=== PATIENT | female | born 1975 | race Caucasian/White ===

== ENCOUNTER 2024-05-05 09:55 | Outpatient (CLI) | payer OTHER ==
[~2024-05-05 09:55] MED LIST: SYNTHROID125 MCG
== END 2024-05-05 10:46 | disposition home or self-care (01) ==
LOC: TOM 09:55
PROVIDERS: ATTEND Urology
DX: T81.83XA Persistent postprocedural fistula, initial encounter (principal)

== ENCOUNTER 2024-12-04 12:16 | Emergency (ER) | payer OTHER ==
[~2024-12-04] VITALS: Ht 162.6 cm; Wt 68.0 kg
[2024-12-04] MEDS ORDERED: 0.9 % SODIUM CHLORIDE 1,000 ML IV STA (13:34)
[2024-12-04] MEDS ORDERED: FAMOtidine 10 MG/ML (4ML VIAL) IV STA (13:34)
[2024-12-04] MEDS ORDERED: HYDROCODONE/CHLORPHEN P-STIREX 5 ML ML PO STA (13:35)
[2024-12-04] MEDS ORDERED: FAMOTIDINE/PF 20 MG/2 ML VIAL ONE (13:46)
[2024-12-04 14:27] LABS: URINE APPEARANCE Clear; URINE BILIRRUBIN Negative (NEGATIVE); URINE BLOOD Negative; URINE COLOR Yellow; URINE GLUCOSE Negative (NEGATIVE); URINE KETONE Negative (NEGATIVE); URINE LEUKOCYTE Negative; URINE NITRATE Negative; URINE PROTEIN Negative (NEGATIVE); URINE UROBILINOGEN 0.2 E.U./dl
[2024-12-04 14:30] LABS: HEMATOCRIT 42.9 % (36.0-45.00); HEMOGLOBIN 14.7 g/dL (12.0-15.00); MEAN CELL VOLUME 96.3 fL (80.00-100.00); MEAN CORPUSCULAR HEMOGLOBIN 32.9 pg (27.00-32.0); MEAN CORPUSCULAR HGB CONC 34.2 g/dl (32.0-36.0); PLATELET COUNT 168 K/uL (150-450); RED BLOOD COUNT 4.45 M/uL (4.00-6.00); RED CELL DISTRIBUTION WIDTH 13.1 % (11.5-14.5)
[2024-12-04 14:32] LABS: URINE BACTERIA 848.2 uL (0.0-1933); URINE EPITHELIAL CELLS 25.8 uL (0.0-38.8); URINE WBC 10.2 uL (0.0-23.2)
[2024-12-04 15:01] LABS: ALBUMIN 3.8 gm/dL (3.4-5.0); BILIRUBIN TOTAL 1.5 mg/dL (0.3-1.2); BILIRUBIN,CONJUGATED 0.3 mg/dL (0.0-0.2); BILIRUBIN,UNCONJUGATED 1.2 mg/dL (0.0-0.6); CALCIUM 9.1 mg/dL (8.5-10.1); CREATININE SERUM 0.78 mg/dL (0.55-1.02); GFR 77.86; POTASSIUM 4.09 mEq/L (3.5-5.1); TOTAL PROTEIN 7.6 gm/dL (6.4-8.2)
== END 2024-12-04 16:38 | disposition home or self-care (01) ==
LOC: ER 12:19
PROVIDERS: General Practice
DX: R05.8 Other specified cough (principal); E03.8 Other specified hypothyroidism; Z20.822 Contact with and (suspected) exposure to COVID-19